=== PATIENT | male | born 1935 | race Caucasian/White ===

== ENCOUNTER → 2016-08-19 | Outpatient (CLI) | payer MEDICARE, BC | LOC: LAB 12:53 | DX: R06.02 Shortness of breath (principal) ==

== ENCOUNTER → 2016-12-29 | Outpatient (CLI) | payer MEDICARE, BC | LOC: RAD 14:35 | DX: M79.662 Pain in left lower leg (principal); I82.412 Acute embolism and thrombosis of left femoral vein ==

== ENCOUNTER 2018-11-07 13:38 | Inpatient (IN) | payer MEDICARE, BC ==
[~2018-11-07] VITALS: Ht 182.9 cm; Wt 91.6 kg
[~2018-11-07 13:38] MED LIST: ACYCLOVIR200 M1 PO; DECADRON 4MG TAB4 MG PO
[2018-11-07] MEDS ORDERED: ATENOLOL25 MG PO (14:53)
[2018-11-07] MEDS ORDERED: CALCITRIOL0.5 MCG PO (14:55)
[2018-11-07 14:56] VITALS: BP 133/82
[2018-11-07] MEDS ORDERED: WARFARIN SOD2 MG PO (14:56)
[2018-11-07 14:59] VITALS: BP 133/82
[2018-11-07] MEDS ORDERED: POMALYST4 MG PO (14:59)
[2018-11-07] MEDS ORDERED: ACETAMINOPHEN500 M5 PO (15:02)
[2018-11-07 18:09] VITALS: BP 90/63
[2018-11-07 18:32] VITALS: BP 88/56
[2018-11-07 23:25] VITALS: BP 113/78
[2018-11-08 03:22] VITALS: BP 114/72
[2018-11-08 06:25] VITALS: BP 100/62
[2018-11-08 06:55] LABS: HEMATOCRIT 38.4 % (42.0-52.0); HEMOGLOBIN 12.3 g/dL (13.5-18.0); MEAN CELL VOLUME 89 fl (78-100); MEAN CORPUSCULAR HEMOGLOBIN 28 pg (27-31); MEAN CORPUSCULAR HGB CONC 32 g/dL (33-37); PLATELET COUNT 197 K/mm3 (130-400); RED BLOOD COUNT 4.34 M/mm3 (4.20-5.60); RED CELL DISTRIBUTION WIDTH 19.3 % (11.5-14.5); WHITE BLOOD COUNT 3.9 K/mm3 (4.8-10.8)
[2018-11-08 07:11] LABS: CALCIUM 7.4 mg/dL (8.4-10.2); POTASSIUM 3.8 mmol/L (3.6-5.0); PROTHROMBIN TIME 35.2 SECONDS (9.0-12.0)
[2018-11-08 07:15] LABS: MEAN PLATELET VOLUME 12.9 fl (7.4-10.4)
[2018-11-08 07:47] LABS: BAND 4 % (0-10); LYMPHOCYTE 15 % (20-51); MONOCYTE 6 % (3-10); NEUTROPHILS 71 % (42-75); OVALOCYTES 2+
[2018-11-08 10:09] LABS: TROPONIN-I < 0.03 ng/mL (0.00-0.06)
[2018-11-08 11:15] VITALS: BP 93/59
[2018-11-08 12:06] VITALS: BP 95/63
[2018-11-13] MEDS ORDERED: PROAIR HFA0.09 MG/AC IH (14:41)
[2018-11-13] MEDS ORDERED: NYSTATIN15 G1 TP (14:42)
== END 2018-11-08 13:42 | disposition short-term general hospital (02) | DRG 291 ==
LOC: MED/SURG 13:38
PROVIDERS: Nurse Practitioner Primary Care; ADMIT Family Medicine
DX: I13.0 Hypertensive heart and chronic kidney disease with heart failure and stage 1 through stage 4 chronic kidney disease, or unspecified chronic kidney disease (principal); A41.9 Sepsis, unspecified organism; J18.9 Pneumonia, unspecified organism; I50.33 Acute on chronic diastolic (congestive) heart failure; C90.30 Solitary plasmacytoma not having achieved remission; N18.3 Chronic kidney disease, stage 3 (moderate); Z79.01 Long term (current) use of anticoagulants; I48.91 Unspecified atrial fibrillation; Z86.718 Personal history of other venous thrombosis and embolism
CPT/HCPCS: A4216; J0456; J0696; J1940; J3490; J7030; J7050

== ENCOUNTER 2018-11-13 14:50 | Inpatient (IN) | payer MEDICARE, BC ==
[~2018-11-13] VITALS: Ht 182.9 cm; Wt 93.7 kg
[~2018-11-13 14:50] MED LIST changes: +ACETAMINOPHEN500 M5 PO; +ATENOLOL25 MG PO; +CALCITRIOL0.5 MCG PO; +NYSTATIN15 G1 TP; +POMALYST4 MG PO; +PROAIR HFA0.09 MG/AC IH; +WARFARIN SOD2 MG PO
[2018-11-13 15:15] VITALS: BP 108/55
--- NOTE | 2018-11-13 15:33 | NUR ---
Assessment complete. Patient settled into room 306. Family in room with patient at time of assessment. Bed alarm on and active. Pleasantly confused. Able to voice wants/needs, none at this time. Will cont to monitor
[2018-11-13 18:20] VITALS: BP 93/59
--- NOTE | 2018-11-13 19:08 | NUR ---
REPORT RECEIVED FROM VALENTINE Dunn RN.
--- NOTE | 2018-11-13 19:21 | NUR ---
Reported off to MATEO Salguero
--- NOTE | 2018-11-14 02:47 | NUR ---
PATIENT CONTINUES TO REST QUIETLY IN BED. SLEEPS IN ROOM WELL. PATIENT DOES NOT APPEAR TO BE IN ANY OBVIOUS DISTRESS AT THIS TIME. PATIENT HAS HAD NO COMPLAINTS OR REQUESTS. PATIENT HAS AMBUALTED TO THE BATHROOM SEVERAL TIMES TONIGHT. HOB ELEVATED FOR COMFORT AND PATIENT CONTROLS THIS INDEPENDENTLY. PATIENT CHANGES HIS POSITION IN BED INDEPENDENTLY THROUGHOUT THE NIGHT. BED RAILS UP X2. BED ALARM ARMED AT ALL TIMES. CALL LIGHT WITHIN REACH. CLOSE MONITORING AND HOURLY ROUNDING CONTINUE.
[2018-11-14 06:14] VITALS: BP 108/73
--- NOTE | 2018-11-14 07:06 | NUR ---
REPORT GIVEN TO JOHNATHON Acevedo RN.
--- NOTE | 2018-11-14 08:30 | NUR ---
Pt up in chair eating breakfast. Pleasantly confused and reorients briefly but then continues confused. Takes pills without problems. Feeds self. Call light in reach and chair alarm on. Tele shows atrial fib. 02 at 2 L/NC. in room eating breakfast also. Bilateral lower extremity mild swelling. Remains in droplet isolation. Denies needs at this time.
[2018-11-14 09:35] LABS: HEMATOCRIT 40.4 % (42.0-52.0); HEMOGLOBIN 12.7 g/dL (13.5-18.0); MEAN CELL VOLUME 89 fl (78-100); MEAN CORPUSCULAR HEMOGLOBIN 28 pg (27-31); MEAN CORPUSCULAR HGB CONC 31 g/dL (33-37); PLATELET COUNT 170 K/mm3 (130-400); RED BLOOD COUNT 4.53 M/mm3 (4.20-5.60); RED CELL DISTRIBUTION WIDTH 18.7 % (11.5-14.5); WHITE BLOOD COUNT 4.1 K/mm3 (4.8-10.8)
[2018-11-14 09:42] LABS: POTASSIUM 3.4 mmol/L (3.6-5.0)
[2018-11-14 09:45] LABS: PROTHROMBIN TIME 37.6 SECONDS (9.0-12.0)
[2018-11-14 09:47] LABS: MEAN PLATELET VOLUME 12.3 fl (7.4-10.4)
[2018-11-14 10:34] LABS: BAND 2 % (0-10); LYMPHOCYTE 25 % (20-51); MONOCYTE 6 % (3-10); NEUTROPHILS 56 % (42-75); NUCLEATED RED BLOOD CELL 3 (0-6)
[2018-11-14 10:35] LABS: OVALOCYTES 2+; SCHISTOCYTES 2+
--- NOTE | 2018-11-14 10:45 | NUR ---
Report recieved from MATEO Cyr. Patient resting in bed. Bed alarm on and active. Call light, personal belongings within reach of patient. Will cont to monitor.
--- NOTE | 2018-11-14 17:57 | NUR ---
This nurse notified by staff that patient has not voided since this morning. Bladder scan completed to assess if patient was retaining urine. Bladder scan showed 220. Instructed patient to increase fluid intake. Will cont to monitor.
[2018-11-14 18:20] VITALS: BP 94/43
--- NOTE | 2018-11-14 19:00 | NUR ---
REPORT RECEIVED FROM JOHNATHON Acevedo RN.
--- NOTE | 2018-11-14 21:08 | NUR ---
PATIENT OBSERVED TO BE SITTING UP IN HIS RECLINER, WATCHING TV AND VISITING WITH FAMILY. PATIENT DOES NOT APPEAR TO BE IN ANY OBVIOUS DISTRESS. PATIENT IS ALERT AND PARTIALLY ORIENTED. PATIENT CONSUMES HIS MEDICATION WITH NO DIFFICULTIES. PATIENT IS PROVIDED EDUCATION AGAIN ON HOW TO INHALE THE NEB TREATMENT. TELE REMAINS IN PLACE. PATIENT DENIES ANY PAIN. PATIENT HAS NO OTHER NEEDS AND ASSESSMENT IS FINISHED. PRESSURE PAD IN PLACE TO RECLINER AND CALL LIGHT WITHIN REACH. AND PATIENT INSTRUCTED TO CALL WHEN THEY ARE READY FOR ASSISTANCE WITH GETTING READY FOR BED. CLOSE MONITORING AND HOURLY ROUNDING CONTINUE.
--- NOTE | 2018-11-15 03:00 | NUR ---
PATIENT IS NOTED TO BE BRADYCARDIC ON TELE. HE IS ASSESSED AND IS OBSERVED TO BE LAYING ON HIS SIDE WITH HIS HEAD IN THE PILLOW IN THE POSITION, BREATHING SHALLOWLY. AN EKG IS PERFORMED AND SOON PATIENT IS AROUSED, HIS HEART RATE JUMPS BACK UP TO HIS NORMAL--HIGH 80S/LOW 90S. PATIENT IS POSITIONED ON HIS BACK AND WITH THE HOB UP AND HE DOES NOT BECOME BRADYCARDIC AGAIN. O2 CONTINUES AT 2L/MIN VIA NC. BED RAILS UP X2. BED ALARM ARMED. CALL LIGHT WITHIN REACH. CLOSE MONITORING AND HOURLY ROUNDING CONTINUE. DR PERRY NOTIFIED OF CODY EPISODE.
--- NOTE | 2018-11-15 05:54 | NUR ---
PATIENT CONTINUES TO BE SOMEWHAT BRADYCARDIC ON TELEMETRY. PATIENT DOES NOT ALLOW STAFF TO OBTAIN O2 SATURATION OR APPLY HIS O2 BACK ON DESPITE MULTIPLE ATTEMPTS BY DIFFERENT STAFF MEMBERS AND EVEN HIS . PATIENT BECOMES MILDLY AGITATED WITH STAFF AND SO HE IS LEFT ALONE AND IS SUPPORTIVE OF THIS. PATIENT DOES NOT APPEAR TO BE IN ANY OBVIOUS DISTRESS.
[2018-11-15 06:03] VITALS: BP 103/58
--- NOTE | 2018-11-15 06:54 | NUR ---
REPORT GIVEN TO ELAINA Bhakta RN.
[2018-11-15 10:43] LABS: PROTHROMBIN TIME 35.5 SECONDS (9.0-12.0)
[2018-11-15 18:47] VITALS: BP 99/58
[2018-11-16 06:15] VITALS: BP 97/59
[2018-11-16 07:13] LABS: PROTHROMBIN TIME 26.9 SECONDS (9.0-12.0)
--- NOTE | 2018-11-16 07:40 | NUR ---
REPORT RECEIVED FROM DEVANTE GALINDO.
--- NOTE | 2018-11-16 07:57 | NUR ---
SETTING OFF BED ALARM. ARRIVE TO FIND PATIENT WITH HIS FEET HANGING OFF THE SIDE OF BED AND NEARBY TO TRY AND KEEP HIM FROM GETTING UP. ALERT TO NAME. MINIMAL ASSIST TO RISE FROM SITTING POSITION. GAIT UNSTEADY WITH WALKER. ECCHYMOSIS AND VERY SMALL SCAB TO RT POSTERIOR RIB FROM THORACENTISIS SITE. PADDED DRESSING TO COCCYX WRINKLED SO THIS IS REMOVED. UPPER PORTION OF SACRAL SPLIT APPEARS ABRASED. DISCUSS SKIN PROTECTANT TO SITE WITH , WHO REPORTS PATIENT COMPLAINS THAT IT WOODS INTERMITTENTLY. HE WILL ALSO TELL HER HIS BOTTOM HURTS IF SITTING TOO LONG.
--- NOTE | 2018-11-16 11:01 | NUR ---
MEAGAN ATTRACTIONS ASSOCIATE BEDSIDE WITH PATIENT AND HIS .
[2018-11-16 11:49] LABS: HEMATOCRIT 36.1 % (42.0-52.0); HEMOGLOBIN 11.5 g/dL (13.5-18.0); MEAN CELL VOLUME 88 fl (78-100); MEAN CORPUSCULAR HEMOGLOBIN 28 pg (27-31); MEAN CORPUSCULAR HGB CONC 32 g/dL (33-37); PLATELET COUNT 140 K/mm3 (130-400); RED BLOOD COUNT 4.09 M/mm3 (4.20-5.60); RED CELL DISTRIBUTION WIDTH 18.4 % (11.5-14.5); WHITE BLOOD COUNT 2.6 K/mm3 (4.8-10.8)
[2018-11-16 12:01] LABS: ALBUMIN 2.5 g/dL (3.5-5.0); CALCIUM 8.5 mg/dL (8.4-10.2); POTASSIUM 3.6 mmol/L (3.6-5.0); TOTAL BILIRUBIN 1.1 mg/dL (0.2-1.3); TOTAL PROTEIN 5.3 g/dL (6.3-8.2)
[2018-11-16 12:27] LABS: MEAN PLATELET VOLUME 12.3 fl (7.4-10.4)
[2018-11-16 12:44] LABS: LYMPHOCYTE 17 % (20-51); MONOCYTE 16 % (3-10); NEUTROPHILS 48 % (42-75); OVALOCYTES 2+
--- NOTE | 2018-11-16 12:50 | NUR ---
Antonio Flores APRN notified of critical lab values.
[2018-11-16 18:00] VITALS: BP 95/64
--- NOTE | 2018-11-16 19:27 | NUR ---
REPORT PROVIDED TO ELAINA GALINDO.
--- NOTE | 2018-11-17 06:17 | NUR ---
Pt here swing bed for strengthing after recent TX for a plural inffusion. Pt is alert with mild confusion. Pt can recall some thing but is easily distractible. stays in room with pt through out the shift. Pt is pleasant and coppetive with cares. reports that pt had not voided but a once or twice during the day. PT denies discomfort. Pt was assesed for bladder distension, none noted. Reported to Param [place] and bladder scan was preformed, with showing result of 368ml. Pt does void x 1 during the night 100ml. Continue to monitor.
[2018-11-17 06:21] VITALS: BP 107/69
--- NOTE | 2018-11-17 07:05 | NUR ---
REPORT RECEIVED FROM ELAINA GALINDO.
--- NOTE | 2018-11-17 09:15 | NUR ---
C/O HIS "BOTTOM BURNING." WILL PLACE CUSHION TO RECLINER AND GIVE PRN TYLENOL.
--- NOTE | 2018-11-17 12:25 | NUR ---
AT 1150 BLADDER SCAN PERFORMED AND SHOWS 416ML IN BLADDER. PATIENT STANDS TO USE URINAL AND VOIDS 50ML AT THIS TIME. VERY CONCERNED ABOUT URINE OUTPUT. ENCOURAGE PATIENT TO TAKE SIPS OF WATER FREQUENTLY; EDUCATED WELL. REASSURE .
--- NOTE | 2018-11-17 17:03 | NUR ---
SIGN BUILDER SUPERVISOR X2 ARRIVE TO ROOM TO ASSIST PATIENT TO CHAIR FOR SUPPER. REPORTS "I CAN'T BELIEVE YOU'RE 3 MINUTES LATE TO GET HIM UP FOR SUPPER." MEAL TRAYS HAVE YET TO BE DELIVERED TO THE FLOOR.
[2018-11-17 18:00] VITALS: BP 103/58
--- NOTE | 2018-11-17 18:07 | NUR ---
PT UP IN CHAIR, LEGS ELEVATED, SMILING AFFECT, PLEASANT MOOD, ALERT AND ORIENTED AND ABLE TO HOLD FLUENT CONVERSATION, AT BEDSIDE, DENIES NEEDS AT THIS TIME WELL, PT DENIES PAIN, CALL LIGHT IS WITHIN REACH, CHAIR ALARM ON, DROPLET PRECAUTIONS IN PLACE, PT HAS HAD MORE OUTPUT TODAY, (450CC SINCE 1500), WILL CONTINUE TO MONITOR, NURSING ASSOCIATE REPORTS IF PT IS ALLOWED ADEQUATE AMOUNT OF TIME HE IS EVENTUALLY ABLE TO GO, HE STATES HE DOESNT HAVE "ANY LUCK" IF HE JUST "STANDS UP AND TRIES TO START PEEING INSTANTLY," WILL CONTINUE TO ALLOW PT THE TIME NEEDED TO VOID ADEQUATELY, CONTINUING TO MONITOR I/O, EDENILSON SANTOYO NOTIFIED
[2018-11-18 06:32] VITALS: BP 112/68
[2018-11-18 07:36] LABS: PROTHROMBIN TIME 18.4 SECONDS (9.0-12.0)
[2018-11-18 18:00] VITALS: BP 105/55
--- NOTE | 2018-11-18 19:20 | NUR ---
REPORT RECEIVED FROM JOHNATHON Acevedo RN.
--- NOTE | 2018-11-19 02:00 | NUR ---
PATIENT CONTINUES TO REST QUIETLY IN BED. SLEEPS IN BED NEXT TO HIM. PATIENT DOES NOT APPEAR TO BE IN ANY OBVIOUS DISTRESS. PATIENT CHANGES HIS POSITION IN BED INDEPENDENTLY THROUGHOUT THE NIGHT. PATIENT HAS GOTTEN UP ONCE TO GO TO THE BATHROOM. PATIENT DENIES PAIN AND HAS NO COMPLAINTS OR REQUESTS. PATIENT'S HOB FLAT BY REQUEST. BED RAILS UP X2. BED ALARM ARMED AT ALL TIMES. CALL LIGHT WITHIN REACH. DROPLET PRECAUTIONS REMAIN IN PLACE. CLOSE MONITORING AND HOURLY ROUNDING CONTINUE.
[2018-11-19 05:38] VITALS: BP 118/63
--- NOTE | 2018-11-19 06:55 | NUR ---
REPORT GIVEN TO JOHNATHON Acevedo RN.
--- NOTE | 2018-11-19 09:00 | NUR ---
Pt is sitting in his recliner in his room finishing up his breakfast. His is at bedside, he denies pain. He is in a pleasant moot, He is wearing 2L nc, no signs of distress, no complaints of sob. his asked me for an ensure for this pt, since "he didnt eat much breakfast." I did bring him an ensure. Chair alarm is on and call light within reach.
--- NOTE | 2018-11-19 13:46 | NUR ---
ASSISTED PT TO BED, AND APPLIED BARRIER CREAM TO HIS BOTTOM SACRAL AREA, HIS WIFFE INFORMED ME THAT HE WAS COMPLAINING OF BURNING IN THAT AREA. HIS BOTTOM WAS BRIGHT RED. TEACHING TO PT AND TO CHANGE POSITIONS FREQUENTLY WHEN LYING IN BED OR SITTING IN CHAIR, AND TO ASK FOR BARRIER CREAM WHEN NEEDED. WILL CONTINUE TO MONITOR.
[2018-11-19 18:05] VITALS: BP 102/52
--- NOTE | 2018-11-19 19:41 | NUR ---
GAVE REPORT TO BRIANA GALINDO
--- NOTE | 2018-11-19 21:45 | NUR ---
Sp02 97% on 2L/NC. Pulse 92, respirations 22 and even. BP 99/62. Tolerated breathing treatment without difficulty. Continues to have occasional none productive cough.
[2018-11-20 06:21] VITALS: BP 106/70
--- NOTE | 2018-11-20 07:10 | NUR ---
Bedside report given to Laurita Acharya RN.
--- NOTE | 2018-11-20 07:20 | NUR ---
report received from rafael keyes
[2018-11-20 18:18] LABS: URINE APPEARANCE HAZY; URINE COLOR YELLOW
[2018-11-20 18:19] LABS: URINE BILIRUBIN NEGATIVE (NEGATIVE); URINE BLOOD TRACE (NEGATIVE); URINE GLUCOSE NEGATIVE (NEGATIVE); URINE KETONE NEGATIVE (NEGATIVE); URINE LEUKOCYTE ESTERASE TRACE (NEGATIVE); URINE NITRATE NEGATIVE (NEGATIVE); URINE PROTEIN(semi-quant) TRACE mg/dL (NEGATIVE); URINE UROBILINOGEN NORMAL (NORMAL)
[2018-11-20 18:20] LABS: URINE MUCUS PRESENT (NOT PRESENT)
[2018-11-20 18:26] VITALS: BP 102/63
--- NOTE | 2018-11-20 19:20 | NUR ---
Bedside report received from Laurita Acharya RN. Pt awake and a/o to self. Watching baseball game on TV. Denies SOB, chest pain or generalized pain.
--- NOTE | 2018-11-20 20:42 | NUR ---
Dr Nolan notified of UA results.
[2018-11-21 06:17] VITALS: BP 86/62
[2018-11-21 09:11] VITALS: BP 99/65
--- NOTE | 2018-11-21 09:30 | NUR ---
patient placed on room air. sp02 100% on room air. will continue to monitor. call light within reach. chair alarm on.
[2018-11-21 18:00] VITALS: BP 93/63
--- NOTE | 2018-11-21 19:10 | NUR ---
Bedside report received from Laurita Acharya RN. Pt resting in bed, awake and a/o at bedside. Pt watching TV and eating a candy bar. Denies having any generalized pain, chest pain or SOB.
--- NOTE | 2018-11-21 19:25 | NUR ---
REPORT GIVEN TO MATEO SALAZAR
[2018-11-22 06:31] VITALS: BP 115/75
--- NOTE | 2018-11-22 07:15 | NUR ---
report received from grady marquez
--- NOTE | 2018-11-22 08:30 | NUR ---
desmond ortiz notified of patient's weight this morning. notified that there is pending urine culture. notified of inr results.
[2018-11-22 19:03] VITALS: BP 106/72
--- NOTE | 2018-11-22 19:20 | NUR ---
REPORT GIVEN TO KERWIN MUSA LPN
[2018-11-23 06:27] VITALS: BP 81/47
--- NOTE | 2018-11-23 13:25 | NUR ---
Reported to Antonio [place] of OT concerns of low blood pressure during session this am. After reviwing past B/P they have been low since addmission. Atenol was stopped at this time.
[2018-11-23 18:00] VITALS: BP 114/72
--- NOTE | 2018-11-23 18:04 | NUR ---
Pt here swing bed for recent Pneumonia. Pt here for PT and OT for strenghting. Pt is in room with pt. Pt request that a appointment be rescheduled for another day. Dr. Whiting office was called and new appontment made for December 13 at 1040. Pt offeres no complints, denies pain when asked. Pt is able to make needs known to staff. 3+ pitting edema bilateral legs pt is to elevate legs twice a day.
--- NOTE | 2018-11-23 19:23 | NUR ---
Report given to Kelvin GALINDO
--- NOTE | 2018-11-24 01:15 | NUR ---
REPORT RECEIVED FROM DEVANTE Ambrose RN.
[2018-11-24 05:38] VITALS: BP 112/71
[2018-11-24 06:57] LABS: PROTHROMBIN TIME 15.5 SECONDS (9.0-12.0)
--- NOTE | 2018-11-24 07:25 | NUR ---
REPORT GIVEN TO KERWIN Ambrose RN.
--- NOTE | 2018-11-24 09:56 | NUR ---
PT FOUND RESTING IN BED AFTER WORKING WITH OT. DENIES ANY PAIN AT THIS TIME. REQUESTS WE TALK TO ONCOLOGIST ABOUT WHEN PT SHOULD RESUME CHEMO. DOES NOT WANT THE SCHEDULED APT, HOPES TO GET IN WITH HEARING AID ASSEMBLY SUPERVISOR INSTEAD. WILL ATTEMPT TO CONTACT ONCOLOGIST.
--- NOTE | 2018-11-24 15:37 | NUR ---
SHELBIE RN HAS BEEN SPEAKING WITH ON CONCERN OF PT RESTARTING HIS CHEMO MEDICATIONS. UNDERSTANDS PT NEEDS TO BE STRONGER TO GO HOME AND CANNOT HAVE CHEMO MEDS DURING HOSPITAL STAY. ONCOLOGIST IS OK WITH THE PLAN TO FINISH REHAB PRIOR TO RESTARTING CHEMO MEDS. PT JUST WANTS TO GO HOME AND SIT AT HIS HOUSE FOR ABOUT TWO HOURS, HE INFORMS THIS NURSE. EDUCATION GIVEN ON WHY PT IS ENCOURAGED TO STAY IN HOSPITAL. VERBALIZES UNDERSTANDING. NO OTHER NEEDS NOTED AT THIS TIME.
[2018-11-24 17:41] VITALS: BP 104/71
--- NOTE | 2018-11-24 17:54 | NUR ---
Called Dr Palomares's nurse Elda to confirm for pt and that Dr Palomares would be okay w/ pt not receiving chemo for now as pt is still min assist w/ therapies and therapy department does not feel he is safe to return home. Elda states that they usually do not like to administer chemo when a pt is in therapy as it can take a lot out of a pt and even more if the pt is weak, she will confirm w/ Dr Palomares. Pt and are notified of this and that Elda calls back after confirming w/ Dr Palomares that Dr Greene would like an update on pt after [facility] care planning meeting next Thursday. She requested that this nurse call her at [phone] w/ report. Pt and are satisfied w/ this information. Pt has c/o not being able to leave facility to go to his home and see his new steps. It is suggested that family bring in pictures for him, he does not like this idea. He is aware that he may leave at any time, but it would be against medical advice as we would be concerned for his safety.
--- NOTE | 2018-11-24 18:49 | NUR ---
PT FOUND SITTING IN CHAIR VISITING WITH FAMILY. DENIES ANY PAIN OR NEEDS AT THIS TIME. NO CHANGES IN PREVIOUS ASSESSMENT. Jaden HUSAIN HAS TALKED TO ABOUT PT STAY, ONCOLOGIST WOULD LIKE TO SEE PT NEXT THURSDAY IF DONE WITH SKILLED WORK.
--- NOTE | 2018-11-24 21:17 | NUR ---
Given vanilla ensure for evening snack.
--- NOTE | 2018-11-24 23:00 | NUR ---
Sssisted with oral and HS care. Pt pleasant and talkative. Denies having any generalized pain, SOB or chest pain. Bed alarm set and call light with in reach of pt.
[2018-11-25 06:12] VITALS: BP 112/67
--- NOTE | 2018-11-25 07:20 | NUR ---
Bedside shift report given to Devika [place] RN
[2018-11-25 18:04] VITALS: BP 101/63
--- NOTE | 2018-11-25 18:10 | NUR ---
spoke with provider (Shana Drake) regarding this patients end date on his amoxicillin, she ordered a stop date of today, she will enter order.
--- NOTE | 2018-11-25 19:05 | NUR ---
GAVE REPORT TO EJ GALINDO
--- NOTE | 2018-11-26 01:30 | NUR ---
PATIENT CONTINUES TO REST QUEITLY IN BED. PATIENT DOES NOT APPEAR TO BE IN ANY OBVIOUS DISTRESS. PATIENT DENIES ANY PAIN. REMAINS AT BEDSIDE. PATIENT CHANGES HIS POSITION IN BED INDEPENDENTLY THROUGHOUT THE NIGHT. PATIENT HAS HAD NO COMPLAINTS OR REQUESTS. BED RAILS UP X2. BED ALARM AREMED AT ALL TIMES. CALL LIGHT WITHIN REACH. CLOSE MONITORING AND HOURLY ROUNDING CONTINUE.
[2018-11-26 06:31] VITALS: BP 123/74
--- NOTE | 2018-11-26 06:44 | NUR ---
REPORT GIVEN TO JOHNATHON Acevedo RN.
[2018-11-26 18:27] VITALS: BP 106/71
--- NOTE | 2018-11-26 18:57 | NUR ---
REPORT RECEIVED FROM JOHNATHON Acevedo RN.
--- NOTE | 2018-11-26 19:37 | NUR ---
Pt given weekly care plan notes.
--- NOTE | 2018-11-27 01:42 | NUR ---
PATIENT CONTINUES TO REST QUIETLY IN BED. PATIENT DOES NOT APPEAR TO BE IN ANY OBVIOUS DISTRESS AT THIS TIME. PATIENT CHANGES HIS POSITION IN BED INDEPENDENTLY THROUGHOUT THE NIGHT. PATIENT HAS HAD NO COMPLAINTS OR REQUESTS. PATIENT'S REMAINS AT BEDSIDE. BED RAILS UP X2. BED ALARM ARMED AT ALL TIMES. CALL LIGHT WITHIN REACH. CLOSE MONITORING AND HOURLY ROUNDING CONTINUE.
[2018-11-27 05:39] VITALS: BP 110/70
--- NOTE | 2018-11-27 07:06 | NUR ---
REPORT GIVEN TO RADHA Martínez RN.
--- NOTE | 2018-11-27 07:13 | NUR ---
Report received from Wilbert Arias RN and care assumed. Pt resting in bed, eyes closed and no signs of distress or discomfort noted at this time. in room with pt. Side rails up, call light in reach, bed alarm on.
--- NOTE | 2018-11-27 08:49 | NUR ---
Upon assessment of pt's orientation, pt able to state that it was Easter weekend, but he was unsure of the year. He was able to state that he was in [place], but thought that he was [place]. Pt resting in chair, denies pain or other needs at this time. Feet elevated in chair.
--- NOTE | 2018-11-27 09:22 | NUR ---
Report given to Huma Khoury RN and care transferred.
--- NOTE | 2018-11-27 10:07 | NUR ---
PT UP IN CHAIR, BILATERAL LEGS ELEVATED, WAITING ON SHOWER THIS AM, DENIES NEEDS, DENIES PAIN, SMILING AFFECT, CALL LIGHT WITHIN REACH AND AND BEDSIDE, DENIES NEEDS OR CONCERNS AT THIS TIME WELL
--- NOTE | 2018-11-27 12:45 | NUR ---
PT TOLERATED SHOWER THIS AM AND AMBULATING WITH STAFF WELL, DENIES PAIN, DENIES NEEDS, PRESENT STILL AT BEDSIDE BUT STATES SHE MAY LEAVE FOR A SHORT BIT TODAY, ENCOURAGED TO STEP OUT AND TAKE A SMALL BREAK, ENSURED PT WILL BE SAFE IN THE CARE OF [facility] STAFF MEMBERS
--- NOTE | 2018-11-27 18:16 | NUR ---
THIS NURSE ROUNDING ON PT AT THIS TIME, STATES PT HAS MENTIONED HIS BOTTOM HURTING WHILE IN THE CHAIR THIS EVENING AFTER SUPPER, PT ESCORTED INTO BED TO SHIFT WEIGHT OFF OF BOTTOM AND TURNED ONTO SIDE WITH PILLOW SUPPORT, BARRIER CREAM APPLIED, REDNESS TO BOTTOM NOTED, NO OPEN AREAS AT THIS TIME, WILL PLACE PT ON A Q2 TURNING SCHEDULE TO PREVENT SKIN BREAKDOWN
[2018-11-27 18:19] VITALS: BP 107/68
--- NOTE | 2018-11-27 19:00 | NUR ---
SHIFT REPORT RECEIVED FROM MATEO ESPINAL.
--- NOTE | 2018-11-27 20:18 | NUR ---
PATIENT RESTING IN BED WITH AT SIDE. SHIFT ASSESSMENT COMPLETED AT THIS TIME. PATIENT ALERT AND CONFUSED, DENIES PAIN. LUNGS CTA, DENIES COUGH OR SHORTNESS OF BREATH. COCCYX IS REDDENED, BARRIER CREAM APPLIED AND TURN Q2H CONTINUED. +2 PITTING EDEMA NOTED TO BLE, ELEVATED WHEN ABLE. HS MEDICATIONS GIVEN WITHOUT DIFFICULTY. PATIENT WITHOUT FURTHER NEEDS, WILL CONTINUE TO MONITOR. CALL LIGHT WITHIN REACH AND BED ALARM ON.
[2018-11-28 06:22] VITALS: BP 120/70
--- NOTE | 2018-11-28 07:19 | NUR ---
REPORT RECEIVED FROM MATEO MENDEZ. PATIENT SLEEPING SOUNDLY IN ROOM LYING ON RIGHT SIDE. PER REPORT PATIENT IS AMBULATING WELL WITH WALKER; NO OXYGEN REQUIRED DURING DAY OR NIGHT. PATIENT DOES HAVE BILATERAL LOWER EXTREMITY EDEMA AND NEED TO ENCOURAGE PATIENT TO ELEVATE LEGS - RETURN TO BED IN MORNING AND AFTERNOON. ENCOURAGE AMBULATION AND TURNING SCHEDULE TO KEEP FROM GETTING SKIN BREAKDOWN. PATIENT'S IN ROOM AND SLEEPING SOUNDLY IN BED NEXT TO PATIENT'S BED.
--- NOTE | 2018-11-28 08:25 | NUR ---
IN ASSESSMENT PATIENT IS ABLE TO RECALL PLACE, PERSON, TIME. PATIENT THOUGH SEEMS TO BE CONFUSED REGARDING TASKS. HE QUESTIONS STAFF WHAT IS HE TO DO NEXT, THEN STATES "OH YEAH". PATIENT IS PLEASANT AND COOPERATIVE. WILL FOLLOW TASKS ONCE HE UNDERSTANDS THEM. PER , THIS IS NORMAL FOR PATIENT TO BE PLEASANTLY CONFUSED. PATIENT WILL MAKE DECISIONS WHEN GIVEN CHOICES BUT PRIMARILY WILL ALSO CHOOSE FOR HIM. PATIENT IS AMBULATORY WITH WALKER WITH STEADY GAIT AND STANDBY ASSIST. PATIENT PUSHED SELF UP TO STAND WITHOUT ASSISTANCE. PATIENT LAUGHS AND SMILES APPROPRIATELY. REMINDED PATIENT AND TO KEEP FEET UP MUCH POSSIBLE AND TO ENCOURAGE MOVEMENT TO REDUCE SKIN BREAKDOWN.
--- NOTE | 2018-11-28 09:30 | NUR ---
Report received from Nargis Barrera RN and care assumed. Pt resting in chair, legs elevated. Call light in reach, chair alarm on.
--- NOTE | 2018-11-28 15:56 | NUR ---
Pt resting in chair, in room. Denies pain or further needs at this time. Chair alarm on, call light in reach.
[2018-11-28 18:19] VITALS: BP 118/75
--- NOTE | 2018-11-28 21:32 | NUR ---
Report given to Wilbert Arias RN and care transferred at this time. Pt in chair, call light in reach, chair alarm on. in room with pt.
--- NOTE | 2018-11-29 02:05 | NUR ---
PATIENT CONTINUES TO SLEEP QUIETLY. PATIENT DOES NOT APPEAR TO BE IN ANY OBVIOUS DISTRESS AT THIS TIME. PATIENT CHANGES POSITION IN BED INDEPENDENTLY THROUGHOUT THE NIGHT BUT STAFF CHECKS Q2H JUST TO BE SURE. PATIENT HAS HAD NO COMPLAINTS OR REQUESTS. BED RAILS UP X2. BED ALARM ARMED AT ALL TIMES. CALL LIGHT WITHIN REACH. CLOSE MONITORING AND HOURLY ROUNDING CONTINUE.
[2018-11-29 06:32] VITALS: BP 131/84
--- NOTE | 2018-11-29 06:47 | NUR ---
REPORT GIVEN TO CARMELA Martínez RN.
--- NOTE | 2018-11-29 07:00 | NUR ---
REPORT RECEIVED FROM DEEPALI GALINDO.
--- NOTE | 2018-11-29 07:45 | NUR ---
IN BED ON LT SIDE WITH EYES CLOSED. AWAKENS EASILY. DOES NOT FEEL LIKE GETTING INTO CHAIR FOR BREAKFAST AT THIS TIME. BREATH SOUNDS CTA BILAT. PITTING EDEMA STILL PRESENT TO BILAT FEET. ALSO HAS 2+ PITTING EDEMA TO LLE BELOW THE KNEE.
--- NOTE | 2018-11-29 11:20 | NUR ---
PETER CHING REPORTS TO MEAGAN GOMEZ, PATIENT'S IS CONCERNED ABOUT NOT HAVING LAB DONE RECENTLY. IS ALSO CONCERNED ABOUT HIS HEART RATE; P106 AT REST AND 112 WITH AMBULATION DURING THERAPY SESSION THIS AM. ORDERS PLACED BY MEAGAN GOMEZ.
[2018-11-29 12:08] LABS: HEMATOCRIT 35.2 % (42.0-52.0); HEMOGLOBIN 11.1 g/dL (13.5-18.0); MEAN CELL VOLUME 91 fl (78-100); MEAN CORPUSCULAR HEMOGLOBIN 29 pg (27-31); MEAN CORPUSCULAR HGB CONC 32 g/dL (33-37); MEAN PLATELET VOLUME 11.5 fl (7.4-10.4); PLATELET COUNT 210 K/mm3 (130-400); RED BLOOD COUNT 3.85 M/mm3 (4.20-5.60); RED CELL DISTRIBUTION WIDTH 19.2 % (11.5-14.5); WHITE BLOOD COUNT 2.6 K/mm3 (4.8-10.8)
[2018-11-29 12:11] LABS: CALCIUM 7.8 mg/dL (8.4-10.2); POTASSIUM 3.3 mmol/L (3.6-5.0)
[2018-11-29 12:13] LABS: PROTHROMBIN TIME 19.1 SECONDS (9.0-12.0)
[2018-11-29 12:57] LABS: NEUTROPHILS 44 % (42-75)
[2018-11-29 13:01] LABS: LYMPHOCYTE 33 % (20-51)
[2018-11-29 13:02] LABS: MONOCYTE 17 % (3-10)
--- NOTE | 2018-11-29 13:44 | NUR ---
POSITION IN BED SUPINE PER COMFORT. ELEVATE LE ON PILLOWS.
--- NOTE | 2018-11-29 14:41 | NUR ---
MEAGAN GOMEZ AT BEDSIDE TO VISIT WITH PATIENT AND HIS . VERBAL ORDER TO START ATENOLOL 12.5MG NOW RATHER THAN IN THE MORNING.
[2018-11-29 15:58] VITALS: BP 135/84
--- NOTE | 2018-11-29 16:00 | NUR ---
SITTING IN HALLWAY WITH JOHNATHON BIRD, WHO REPORTS PATIENT IS UNABLE TO PERFORM DORSIFLEXION WITH HIS RT FOOT. SHE ALSO REPORTS A SHUFFLING PATTERN WITH RT FOOT WHILE AMBULATING HALLWAY. PUPILS 3MM AND EQUAL BILAT. HAND PATTERN SETTER STRONG AND EQUAL BILAT. SPEECH CLEAR AND FACILA MOVEMENT SYMMETRICAL. VSS. STANDBY ASSIST BACK TO ROOM WITH W/C TO FOLLOW IF NEEDED.
[2018-11-29 18:05] VITALS: BP 104/68
--- NOTE | 2018-11-29 20:02 | NUR ---
REPORT PROVIDED TO ELAINA GALINDO.
[2018-11-30 06:02] VITALS: BP 113/65; BP 136/84
--- NOTE | 2018-11-30 06:09 | NUR ---
Pt here swingbed for PT/OT for strengthing. in room at all times during the night. Pt is alert o person and place but not situation. Pt calls for assistance to the restroom. Pt ambualtes with slow steady gait using a walker and 1 person assitance. Pt denies pain when asked.
--- NOTE | 2018-11-30 06:50 | NUR ---
Report given to Jerod GALINDO
--- NOTE | 2018-11-30 09:00 | NUR ---
Pt sitting up in chair. Has finished breakfast. at side and leads and instructs pt on daily tasks including what to eat. Pt reports "numbness" feeling in right foot that started yesterday. Strengths equal bilaterally. Pt with BLE edema worse in the LLE. Pt agrees to elevate feet.
--- NOTE | 2018-11-30 10:27 | NUR ---
Blayne Day APRN notified of pt continuing to drag and right foot with ambulation and have slight weakness
[2018-11-30 18:03] VITALS: BP 115/76
[2018-12-01 05:59] VITALS: BP 105/62
--- NOTE | 2018-12-01 07:00 | NUR ---
REPORT RECEIVED FROM ANDREA. PATIENT AND BOTH SOUND ASLEEP IN ROOM ON BEDS. PER REPORT NO CHANGES IN PAST COUPLE DAYS OTHER THAN BLOOD THINNER MEDICATION. PATIENT PLEASANTLY CONFUSED AND NEEDS LOTS OF REMINDERS ON TASKS BUT GENERALLY COOPERATIVE. PER REPORT; PATIENT IS DUE FOR DISCHARGE TO HOME TOMORROW.
--- NOTE | 2018-12-01 12:00 | NUR ---
PT UP IN CHAIR FOR LUNCH, NO ACUTE CHANGES, DENIES PAIN, DENIES NEEDS, SMILING AFFECT, WALKING IS STABLE WITH STAFF, ENCOURAGED TO CHANGE POSITIONS OR AMBULATE SHORT DISTANCES EVERY 2 HOURS, WILL CONTINUE TO MONITOR PT'S HEALTH STATUS
[2018-12-01 18:00] VITALS: BP 117/79
--- NOTE | 2018-12-01 18:11 | NUR ---
PT ASSISTED TO THE RESTROOM, STATES HIS "BUTT" IS BURNING THIS EVENING, UPON ASSESSMENT SKIN IS RED AND BLANCHABLE, PT ENCOURAGED TO SHIFT PRESSURE AWAY FROM BOTTOM FOR A WHILE, ASSISTED TO HIS BED AND PLACED ON HIS SIDE WITH PILLOW SUPPORT, BOTTOM CLEANSED AND BARRIER CREAM APPLIED, PT STATES BURNING IS "ALREADY BETTER," WILL CONTINUE TO MONITOR FOR FURTHER REDNESS OR SKIN BREAKDOWN, NO OPEN AREAS AT THIS TIME
--- NOTE | 2018-12-01 20:07 | NUR ---
Dr Palomares's office was called w/ pt condition report on 11-30-18, his nurse Elda was notified that pt has had a problem w/ foot drop, that appeared suddenly, but was now improving. He will be discharged to home w/ [facility] on 12-02-18. Elad states she would notify Dr Palomares on the am of 12-01-18 and pt and family was notified. On this date Dr Palomares's nurse Michelle calls back and states that Dr Palomares wants to see pt on 12-03-18 @ 1179. Pt's is notified and this appointment is communicated to hospital nursing staff. Pt has chosen [facility] and records are faxed, he will need SN/PT/OT/BathAide and Aed Trainer to assist him and his w/ obtaining vision care associate hours in the home and monitoring for need for possible eventual transition to Hospice care.
--- NOTE | 2018-12-01 23:47 | NUR ---
Awake and alert; friendly and cooperative. Oriented to name and quick to ask questions to re-orient himself to time and place. Risk for fall due to some unsteadiness identified; using bed/mobility alarm for pt safety and side rails to assist pt with bed mobility. His spouse is at bed side and spending the night in adjacent bed. Cont. to monitor on regular rounds during the night.
[2018-12-02 06:10] VITALS: BP 109/65
--- NOTE | 2018-12-02 07:32 | NUR ---
Report given to oncoming shift nurse. Pt (and spouse) sleeping on rounds.
[2018-12-02] MEDS ORDERED: XARELTO20 MG PO (09:29)
[2018-12-02] MEDS ORDERED: IPRATROPIUM BROM3 M1 IH (09:29)
[2018-12-02] MEDS ORDERED: ATENOLOL25 MG PO (09:30)
[2018-12-02] MEDS ORDERED: MELATIN 3 MG-11 TAB PO (09:30)
--- NOTE | 2018-12-02 11:34 | NUR ---
PATIENT IS SITTING ON HIS RECLINER WITH FEET ON FLOOR NEXT TO HIS BED IN HIS ROOM, IS AT BEDSIDE. I DISCUSSED DISCHARGE TODAY. THEY ARE BOTH AGREEABLE AND STATE PATIENT IS READY TO GO HOME. STATES THAT THEIR RIDE HOME WILL NOT BE HER UNTIL ABOUT 4PM. PATIENTS BILATERAL FEET ARE PLUS 3 PITTING EDEMA. I EXPLAINED THE IMPORTANCE OF ELEVATING HIS LEGS WHILE SITTING AND WHILE IN BED. STATES THAT HE HAS NOT BEEN DOING THAT CONSISTANTLY. PT DENIES PAIN, HIS CHAIR ALARM IS ON AND CALL LIGHT IS WITHIN REACH.
--- NOTE | 2018-12-02 16:25 | NUR ---
Pt was discharged from this facility at 1624. Patient looks happy to go home, denies pain, able to stand with assistance from walker. He was escorted out via wheelchair by Azalea GALINDO, Latrice BROWN, his and his son. His discharge packet was signed, reviewed, and given to his . His verbalized understanding of instructions. Follow up appts were reviewed with his . All his personal belongings were taken with him.
[2018-12-02 16:34] VITALS: BP 124/71
== END 2018-12-02 16:25 | disposition home health service (06) | DRG 947 ==
LOC: MED/SURG 14:50
PROVIDERS: Nurse Practitioner Family; Nurse Practitioner Primary Care; ADMIT Family Medicine
DX: R53.81 Other malaise (principal); J18.9 Pneumonia, unspecified organism; I50.33 Acute on chronic diastolic (congestive) heart failure; I50.32 Chronic diastolic (congestive) heart failure; C90.00 Multiple myeloma not having achieved remission; J90 Pleural effusion, not elsewhere classified; I48.91 Unspecified atrial fibrillation; Z87.891 Personal history of nicotine dependence; Z99.81 Dependence on supplemental oxygen; R41.0 Disorientation, unspecified; Z79.01 Long term (current) use of anticoagulants

== ENCOUNTER 2019-01-18 12:56 | Inpatient (IN) | payer MEDICARE, BC ==
[~2019-01-18] VITALS: Ht 182.9 cm; Wt 90.3 kg
[~2019-01-18 12:56] MED LIST changes: +IPRATROPIUM BROM3 M1 IH; +MELATIN 3 MG-11 TAB PO; +POMALYST3 MG PO; +XARELTO20 MG PO
[2019-01-18 14:52] VITALS: BP 137/84
[2019-01-18 15:27] VITALS: BP 137/84
[2019-01-18 15:44] LABS: HEMATOCRIT 35.9 % (42.0-52.0); HEMOGLOBIN 11.7 g/dL (13.5-18.0); MEAN CELL VOLUME 90 fl (78-100); MEAN CORPUSCULAR HEMOGLOBIN 29 pg (27-31); MEAN CORPUSCULAR HGB CONC 33 g/dL (33-37); MEAN PLATELET VOLUME 9.7 fl (7.4-10.4); PLATELET COUNT 219 K/mm3 (130-400); RED BLOOD COUNT 4.01 M/mm3 (4.20-5.60); RED CELL DISTRIBUTION WIDTH 16.8 % (11.5-14.5)
[2019-01-18 15:58] LABS: ALBUMIN 2.6 g/dL (3.4-4.8); CALCIUM 8.1 mg/dL (8.3-10.5); POTASSIUM 3.9 mmol/L (3.5-5.1); TOTAL BILIRUBIN 0.6 mg/dL (0.2-1.2); TOTAL PROTEIN 5.7 g/dL (6.2-8.1)
[2019-01-18 16:23] LABS: LYMPHOCYTE 19 % (20-51); MONOCYTE 11 % (3-10); NEUTROPHILS 69 % (42-75)
[2019-01-18 17:52] VITALS: BP 125/86
[2019-01-19 06:21] VITALS: BP 121/81
[2019-01-19 18:43] VITALS: BP 110/71
[2019-01-20 06:24] VITALS: BP 112/70
[2019-01-20 19:03] VITALS: BP 105/71
[2019-01-21 06:10] VITALS: BP 122/70
[2019-01-21 18:46] VITALS: BP 112/70
[2019-01-22 06:17] VITALS: BP 113/68
[2019-01-22 18:26] VITALS: BP 99/66
[2019-01-23 06:01] VITALS: BP 124/72
[2019-01-23] MEDS ORDERED: Patient's Own Medica PO (11:24)
== END 2019-01-23 13:27 | disposition home health service (06) | DRG 947 ==
LOC: MED/SURG 12:56
PROVIDERS: ADMIT Nurse Practitioner Primary Care
DX: R53.81 Other malaise (principal); J69.0 Pneumonitis due to inhalation of food and vomit; C90.00 Multiple myeloma not having achieved remission; I13.0 Hypertensive heart and chronic kidney disease with heart failure and stage 1 through stage 4 chronic kidney disease, or unspecified chronic kidney disease; P28.89 Other specified respiratory conditions of newborn; I50.9 Heart failure, unspecified; N18.9 Chronic kidney disease, unspecified; I48.0 Paroxysmal atrial fibrillation; F03.90 Unspecified dementia, unspecified severity, without behavioral disturbance, psychotic disturbance, mood disturbance, and anxiety; Z79.01 Long term (current) use of anticoagulants; Z87.891 Personal history of nicotine dependence; Z88.8 Allergy status to other drugs, medicaments and biological substances; Z88.1 Allergy status to other antibiotic agents; Z91.011 Allergy to milk products

== ENCOUNTER 2019-02-27 14:43 | Emergency (ER) | payer MEDICARE, BC ==
[~2019-02-27] VITALS: Ht 182.9 cm; Wt 88.6 kg
[~2019-02-27 14:43] MED LIST changes: +Patient's Own Medica PO
[2019-02-27 15:28] LABS: HEMATOCRIT 34.8 % (42.0-52.0); HEMOGLOBIN 11.3 g/dL (13.5-18.0); MEAN CELL VOLUME 90 fl (78-100); MEAN CORPUSCULAR HEMOGLOBIN 29 pg (27-31); MEAN CORPUSCULAR HGB CONC 33 g/dL (33-37); PLATELET COUNT 186 K/mm3 (130-400); RED BLOOD COUNT 3.85 M/mm3 (4.20-5.60); WHITE BLOOD COUNT 5.1 K/mm3 (4.8-10.8)
[2019-02-27 15:31] LABS: POTASSIUM 4.9 mmol/L (3.5-5.1); SODIUM 137 mmol/L (136-145)
[2019-02-27 15:32] LABS: ALBUMIN 2.6 g/dL (3.4-4.8)
[2019-02-27 15:33] LABS: CALCIUM 7.8 mg/dL (8.3-10.5)
[2019-02-27 15:35] LABS: CARBON DIOXIDE 21 mmol/L (23-31); GLUCOSE 105 mg/dL (75-110); TOTAL PROTEIN 5.2 g/dL (6.2-8.1)
[2019-02-27 15:39] LABS: MEAN PLATELET VOLUME 12.2 fl (7.4-10.4)
[2019-02-27 15:40] LABS: AST-SGOT 10 U/L (5-34)
[2019-02-27 15:42] LABS: ALT/SGPT 6 U/L (0-55)
[2019-02-27 15:47] LABS: BAND 10 % (0-10); LYMPHOCYTE 8 % (20-51); METAMYELOCYTE 1 % (0-0); MONOCYTE 10 % (3-10); NEUTROPHILS 67 % (42-75); OVALOCYTES 2+
[2019-02-27 15:49] LABS: TROPONIN-I < 0.03 ng/mL (<0.030)
[2019-02-27 20:14] LABS: URINE APPEARANCE CLEAR; URINE BILIRUBIN NEGATIVE (NEGATIVE); URINE BLOOD NEGATIVE (NEGATIVE); URINE COLOR YELLOW; URINE GLUCOSE NEGATIVE (NEGATIVE); URINE KETONE NEGATIVE (NEGATIVE); URINE LEUKOCYTE ESTERASE 2+ (NEGATIVE); URINE NITRATE NEGATIVE (NEGATIVE); URINE PROTEIN(semi-quant) 1+ mg/dL (NEGATIVE); URINE UROBILINOGEN NORMAL (NORMAL); URINE WBC 16-30 /hpf (0-3)
[2019-02-27 22:20] VITALS: BP 105/62
== END 2019-02-27 22:20 | disposition home or self-care (01) ==
LOC: ED 14:43
PROVIDERS: Family Medicine
DX: A41.9 Sepsis, unspecified organism (principal); N39.0 Urinary tract infection, site not specified; R91.8 Other nonspecific abnormal finding of lung field; I50.9 Heart failure, unspecified; Z79.01 Long term (current) use of anticoagulants; Z87.01 Personal history of pneumonia (recurrent); Z86.718 Personal history of other venous thrombosis and embolism; Z86.711 Personal history of pulmonary embolism
CPT/HCPCS: J2543; J7030; J7120